=== PATIENT | male | born 1995 | race Caucasian/White ===

== ENCOUNTER 2018-10-19 06:00 | Inpatient (IN) | payer BC, OTHER ==
[~2018-10-19] VITALS: Ht 177.8 cm; Wt 69.3 kg
[2018-10-19] MEDS ORDERED: LACTATED RINGERS 1,000 ML IV SCH (06:44)
[2018-10-19] MEDS ORDERED: CLINDAMYCIN PMX 900MG/50ML 50 ML IV ONE (07:00)
[2018-10-19] MEDS ORDERED: LIDOCAINE 1%-EPI 1:100K, 20ML ONE (07:05)
[2018-10-19] MEDS ORDERED: BUPIVACAINE/PF-EPI 0.5% 1:200K ONE (07:05)
[2018-10-19] MEDS ORDERED: OXYMETAZOLINE NASAL SPRAY 0.05%, 15ML ONE (07:06)
[2018-10-19] MEDS ORDERED: DEXAMETHASONE 4 MG/ML, 5ML ONE (07:06)
[2018-10-19] MEDS ORDERED: NEOSPORIN OINT, 15GM ONE (07:06)
[2018-10-19] MEDS ORDERED: MIDAZOLAM 1 MG/ML, 2ML ONE (07:12)
[2018-10-19] MEDS ORDERED: FENTANYL PF 250 MCG/5ML ONE ×2 (07:12→08:05)
[2018-10-19 07:21] VITALS: BP 124/75
[2018-10-19 07:24] LABS: BASOPHILS # (AUTO) 0.01 x10^3/uL (0-0.1); BASOPHILS % (AUTO) 0 % (0-1); EOSINOPHILS # (AUTO) 0.13 x10^3/uL (0-0.4); EOSINOPHILS % (AUTO) 3 % (1-7); LYMPHOCYTES # (AUTO) 1.17 x10^3/uL (1-3.4); LYMPHOCYTES % (AUTO) 26 % (22-44); MD NO; MEAN CORPUSCULAR HEMOGLOBIN 28.3 pg (27.5-34.5); MEAN CORPUSCULAR HGB CONC 32.9 g/dL (33.2-36.2); MEAN CORPUSCULAR VOLUME 86.1 fL (81-97); MEAN PLATELET VOLUME 8.1 fL (7.4-10.4); MONOCYTES # (AUTO) 0.34 x10^3/uL (0.2-0.8); MONOCYTES % (AUTO) 8 % (2-9); NEUTROPHILS # (AUTO) 2.79 x10^3/uL (1.8-6.8); NEUTROPHILS % (AUTO) 63 % (42-75); PLATELET COUNT 248 x10^3/uL (130-400); RED BLOOD COUNT 5.87 x10^6/uL (4.38-5.82); RED CELL DISTRIBUTION WIDTH 13.8 % (9.4-14.8)
[2018-10-19] MEDS ORDERED: SUMATRIPTAN PO (07:31)
[2018-10-19] MEDS ORDERED: PROPOFOL 100 ML ONE (07:31)
[2018-10-19] MEDS ORDERED: LIDOCAINE PF 2%, 5ML ONE (07:38)
[2018-10-19 07:40] LABS: ALANINE AMINOTRANSFERASE 47 U/L (12-78); ALBUMIN 4.6 g/dL (3.4-5.0); ANION GAP 5 mmol/L (5-15); CALCIUM 9.6 mg/dL (8.5-10.1); CHLORIDE 105 mmol/L (98-107)
[2018-10-19 07:42] LABS: ALKALINE PHOSPHATASE 62 U/L (45-117); BILIRUBIN,TOTAL 1.1 mg/dL (0.2-1.0); CREATININE 1.14 mg/dL (0.7-1.3); TOTAL PROTEIN 8.3 g/dL (6.4-8.2)
[2018-10-19] MEDS ORDERED: GLYCOPYRROLATE 0.2MG/1ML, 5ML ONE (08:05)
[2018-10-19] MEDS ORDERED: SUCCINYLCHOLINE 20 MG/ML, 10ML ONE (08:05)
[2018-10-19] MEDS ORDERED: ROCURONIUM 10MG/ML,5ML ONE (08:05)
[2018-10-19] MEDS ORDERED: DEXAMETHASONE 4 MG/ML, 1ML ONE (08:05)
[2018-10-19] MEDS ORDERED: PROPOFOL 10 MG/ML, 20ML ONE (08:05)
[2018-10-19] MEDS ORDERED: NEOSTIGMINE 1 MG/ML, 10ML ONE (08:05)
[2018-10-19] MEDS ORDERED: ONDANSETRON 2MG/ML, 2ML ONE (08:05)
[2018-10-19] MEDS ORDERED: CEFAZOLIN 1,000 MG ONE (08:05)
[2018-10-19] MEDS ORDERED: OXYcodone 5 MG/5 ML ORAL.SOL UDC PO PRN (08:30)
[2018-10-19] MEDS ORDERED: ONDANSETRON ODT 8 MG PO PRN (08:30)
[2018-10-19] MEDS ORDERED: LORazepam 2 MG/ML, 1ML IVPush PRN (08:30)
[2018-10-19] MEDS ORDERED: ACETAMINOPHEN 325 MG TABLET PO PRN (08:30)
[2018-10-19] MEDS ORDERED: PROMETHAZINE 25 MG/ML, 1ML IV PRN (08:30)
[2018-10-19] MEDS ORDERED: MEPERIDINE/PF 25MG/0.5ML IVPush PRN (08:30)
[2018-10-19] MEDS ORDERED: ONDANSETRON 2MG/ML, 2ML IV PRN ×2 (08:30→15:30)
[2018-10-19] MEDS ORDERED: SUMATRIPTAN 6MG/0.5ML SQ PRN (08:30)
[2018-10-19] MEDS ORDERED: MEPERIDINE/PF 50 MG/ML ONE (11:12)
[2018-10-19] MEDS ORDERED: FENTANYL PF 100 MCG/2ML ONE ×2 (11:21→13:17)
[2018-10-19] MEDS ORDERED: OXYcodone 5 MG/5 ML ORAL.SOL UDC ONE (13:17)
[2018-10-19] MEDS: FENTANYL PF 100 MCG/2ML IV PRN ×2 (13:20→13:35)
[2018-10-19] MEDS ORDERED: HYDROmorphone 1 MG/ML, 1ML VIAL ONE (13:58)
[2018-10-19] MEDS: HYDROmorphone 2 MG/ML, 1ML IVPush PRN ×3 (14:00→14:10)
[2018-10-19] MEDS ORDERED: MORPHINE SULFATE 4 MG/ML, 1ML ONE (14:57)
[2018-10-19] MEDS: MORPHINE SULFATE 4 MG/ML, 1ML IV PRN ×3 (15:04→22:05)
[2018-10-19] MEDS ORDERED: DIPHENHYDRAMINE 50 MG/ML, 1ML IVPush PRN (15:30)
[2018-10-19] MEDS: CLINDAMYCIN PMX 600MG/50ML 50 ML IV SCH ×2 (16:49→23:09)
[2018-10-19] MEDS: D5%-0.45NACL+KCL 20MEQ 1,000 ML IV SCH (16:49)
[2018-10-19] MEDS: KETOROLAC 30 MG/1 ML IV SCH ×2 (16:50→23:08)
[2018-10-19] MEDS: DEXAMETHASONE 4 MG/ML, 1ML IV SCH ×2 (16:50→23:08)
[2018-10-19] MEDS ORDERED: BACITRACIN OINT 500U/GM, 28GM TP PRN (19:30)
[2018-10-19 19:48] VITALS: BP 114/75
[2018-10-19] MEDS ORDERED: BACITRACIN OINT 500U/GM, 28GM TP SCH (20:00)
[2018-10-19] MEDS: OXYcodone 5 MG/5 ML ORAL.SOL UDC PO PRN (20:42)
[2018-10-19] MEDS: SODIUM CHLORIDE FLUSH 3ML SYRINGE IVF SCH (21:00)
[2018-10-20 00:26] VITALS: BP 109/64
[2018-10-20] MEDS: MORPHINE SULFATE 4 MG/ML, 1ML IV PRN ×5 (00:38→12:13)
[2018-10-20] MEDS: OXYcodone 5 MG/5 ML ORAL.SOL UDC PO PRN ×4 (00:52→13:50)
[2018-10-20] MEDS ORDERED: ACETAMINOPHEN 650 MG/20.3 ML UDC ONE ×2 (00:54→05:13)
[2018-10-20] MEDS: ACETAMINOPHEN 325 MG/10.15 ML UDC PO PRN ×3 (00:55→09:26)
[2018-10-20 04:36] VITALS: BP 92/57
[2018-10-20] MEDS: D5%-0.45NACL+KCL 20MEQ 1,000 ML IV SCH (05:00)
[2018-10-20] MEDS: KETOROLAC 30 MG/1 ML IV SCH ×2 (05:17→11:00)
[2018-10-20 06:35] VITALS: BP 102/55
[2018-10-20] MEDS: CLINDAMYCIN PMX 600MG/50ML 50 ML IV SCH (07:55)
[2018-10-20] MEDS: SODIUM CHLORIDE FLUSH 3ML SYRINGE IVF SCH (09:00)
[2018-10-20 12:41] VITALS: BP 96/54
[2018-10-20] MEDS ORDERED: IBUPROFEN 800 MG TABLET PO PRN (13:30)
[2018-10-20] MEDS ORDERED: ACETAMINOPHEN 500 MG TABLET PO PRN (13:30)
[2018-10-20] MEDS ORDERED: IBUP200T49 PO (14:05)
[2018-10-20] MEDS ORDERED: OXYC5SOL8 PO (14:10)
[2018-10-20] MEDS ORDERED: CLIN300C8 PO (14:11)
== END 2018-10-20 14:47 | disposition home or self-care (01) | DRG 132 ==
LOC: OUT 06:00 → EDSTATUS 07:30 → 4NOR 14:56 → OUT 19:24 → 4NOR 10-20 12:10 → DCLOUNGE 10-20 14:37
PROVIDERS: ADMIT Oral & Maxillofacial Surgery; ATTEND Oral & Maxillofacial Surgery
PROC: 0NSR04Z Reposition Maxilla with Internal Fixation Device, Open Approach (ICD-10-PCS; principal; 2018-10-19 07:30)
PROC: 0NHR04Z Insertion of Internal Fixation Device into Maxilla, Open Approach (ICD-10-PCS; 2018-10-19 07:30)
DX: M26.03 Mandibular hyperplasia (principal); M26.12 Other jaw asymmetry; M26.4 Malocclusion, unspecified; Z88.0 Allergy status to penicillin
CPT/HCPCS: 36415; 70100; 80053; 85014; 85018; 85025; C1713; G0378; J0690; J1100; J1170; J1885; J2175; J2250; J2405; J2704; J2710; J3010; J3490; J0330; J2270; J3480; J7120